=== PATIENT | female | born 1960 | race Caucasian/White ===

== ENCOUNTER 2018-07-30 12:24 | Outpatient (REF) | payer MEDICAID, SELFPAY ==
[2018-07-30 22:04] LABS: Absolute Basophil Count 0.02 k/cumm (0.0-0.2); Absolute Eosinophil Count 0.13 k/cumm (0.0-0.7); Absolute Lymphocyte Count 1.78 k/cumm (1.2-3.4); Basophils % 0.4; Eosinophils % 2.4; HCT 42.6 % (36.0-46.0); HGB 14.2 g/dL (12.0-15.5); Lymphocytes % 32.8; Mean Corp. HGB Concentration 33.3 g/dL (32.0-36.0); Mean Corpuscular Hemoglobin 31.8 pg (27.0-33.0); Mean Corpuscular Volume 95.5 fL (80-95); Monocytes % 7.4; Platelet Count 196 x1000/uL (130-400); RBC 4.46 m/cumm (4.00-5.20); RBC Distribution Width 12.8 % (11.7-14.6); White Blood Cell Count 5.43 k/cumm (4.4-10.8)
[2018-07-30 22:21] LABS: ALT 33 U/L (12-78); AST 17 U/L (15-37); Albumin 3.7 g/dL (3.4-5.0); Alkaline Phosphatase 67 U/L (46-116); Anion Gap 8.8 mmol/L (3-11); BUN 21 mg/dL (7-18); Bilirubin, Total 0.4 mg/dL (0.2-1.0); C-Reactive Protein 0.11 mg/dL (0.0-0.3); CO2 27.2 mmol/L (21.0-32.0); CREATININE 0.95 mg/dL (0.55-1.02); Calcium 8.6 mg/dL (8.5-10.1); Chloride 107 mmol/L (98-107); Creatine Kinase 127 U/L (26-192); Glucose 106 mg/dL (70-100); Magnesium 1.5 mg/dL (1.8-2.4); Potassium 4.3 mmol/L (3.5-5.1); Sodium 143 mmol/L (136-145); Total Protein 6.8 g/dL (6.4-8.2)
[2018-07-30 23:35] LABS: ESR 16 MM/HR (0-30)
== END 2018-07-30 12:44 ==
LOC: NCHCN 12:24
PROVIDERS: PCP Nurse Practitioner Family; Visit Provider Specialist/Technologist Athletic Trainer
DX: M62.81 Muscle weakness (generalized) (principal)
CPT/HCPCS: 80053; 82550; 85652; 83735; 85025; 86140

== ENCOUNTER 2019-10-08 11:03 | Outpatient (REF) | payer MEDICAID, SELFPAY ==
[2019-10-08 20:21] LABS: Calculated LDL 138 mg/dL (<100); Cholesterol 208 mg/dL (<200); Glucose 92 mg/dL (74-106); HDL Cholesterol 37 mg/dL (40-60); Magnesium 1.8 mg/dL (1.8-2.4); Triglyceride 169 mg/dL (<150)
== END 2019-10-08 11:23 ==
LOC: NCHCN 11:03
PROVIDERS: PCP Nurse Practitioner Family; Visit Provider Nurse Practitioner Family
DX: E83.42 Hypomagnesemia (principal); K21.9 Gastro-esophageal reflux disease without esophagitis; M79.672 Pain in left foot; Z00.00 Encounter for general adult medical examination without abnormal findings
CPT/HCPCS: 80061; 82947; 83735